=== PATIENT | male | born 1960 | race American Indian/Alaskan Native ===

== ENCOUNTER 2017-02-13 17:26 | Inpatient (IN) | payer OTHER ==
--- NOTE | 2017-02-13 18:00 | Emergency Department Report ---
Entered by CAS WILLIAMSON, acting as scribe for ZULMA SHAVER NP. Chief Complaint: Abdominal Pain Stated Complaint: ABD PAIN Time Seen by Provider: 02/13/17 17:55 - HPI History of Present Illness: 56 y/o non-toxic, non ill-appearing male in no acute distress presents to ED c/ o cramping abdominal pain since 1 week ago with associated loss of appetite. Also reports flu-like symptoms and general weakness at same onset. Reports chills. Denies N/V, chest pain, SOB. - ROS Review of Systems: + diffuse abdominal pain, chills - N/V, chest pain, SOB - Exam Vital Signs: Vital Signs 02/13/17 17:50 Temperature 98.3 F Pulse Rate 124 H Respiratory 20 Rate Blood Pressure 90/64 O2 Sat by Pulse 96 Oximetry Physical Exam: Abdomen: Diffuse abdominal pain. Non-distended. Non-tender. No point tenderness. Bowel sounds normal x 4. MSE screening note: Focused history and physical exam performed. Due to findings the following was ordered: CBC, CMP, amylase, lipase, UA ED Disposition for MSE Condition: Stable This documentation as recorded by the scribe,CAS WILLIAMSON,accurately reflects the service I personally performed and the decisions made by ,ZULMA SHAVER, BETH.
[2017-02-13 18:14] LABS: Basophils % (Auto) 0.8 % (0.0-1.8); Hematocrit 42.2 % (35.5-45.6); Hemoglobin 13.7 gm/dl (11.8-15.2); Mean Corpuscular HGB Conc 32 % (32-34); Mean Corpuscular Hemoglobin 28 pg (28-32); Mean Corpuscular Volume 86 fl (84-94); Platelet Count 439 K/mm3 (140-440); Red Blood Count 4.94 M/mm3 (3.65-5.03); Red Cell Distribution Width 14.7 % (13.2-15.2); White Blood Count 9.5 K/mm3 (4.5-11.0)
[2017-02-13 18:38] LABS: Alanine Aminotransferase 16 units/L (7-56); Albumin/Globulin Ratio 1.4 %; Alkaline Phosphatase 65 units/L (35-129); Amylase 134 units/L (27-131); Anion Gap 20 mmol/L; BUN/Creatinine Ratio 14.16; Blood Urea Nitrogen 17 mg/dL (9-20); Calcium 9.3 mg/dL (8.4-10.2); Carbon Dioxide 25 mmol/L (22-30); Chloride 90.6 mmol/L (98-107); Glucose 113 mg/dL (75-100); Lipase 124 units/L (13-60); Potassium 5.3 mmol/L (3.6-5.0); Sodium 130 mmol/L (137-145); Total Protein 6.9 g/dL (6.3-8.2)
[2017-02-13] MEDS ORDERED: TYLENOL PO ONE (23:51)
[2017-02-13] MEDS ORDERED: NACL 0.9% 1000 ML 2,000 ML IV ONE (23:51)
[2017-02-13] MEDS ORDERED: ZOFRAN IV ONE (23:51)
[2017-02-13] MEDS ORDERED: DECADRON IV ONE (23:54)
--- NOTE | 2017-02-14 00:06 | Emergency Department Report ---
ED Abdominal Pain HPI - General Chief Complaint: Abdominal Pain Stated Complaint: ABD PAIN Time Seen by Provider: 02/13/17 23:41 Source: patient Mode of arrival: Ambulatory Limitations: No Limitations - History of Present Illness Initial Comments: This is a pleasant 56-year-old gentleman who presents to the ED complaining of profound weakness. He describes headache as well as some body aches and some abdominal pains as well. He indicates approximately a week ago he had some nausea vomiting diarrhea. He states this is now resolved. He has anorexia now. He reports his abdominal pain is minimal. He describes the worst part being his profound weakness. He does endorse alcohol fairly regularly. States he hasn't drunk in about one week ago denies being on any current medications. Mild denies any hematochezia or hematemesis. Denies any difficulties with urination. Feels somewhat dehydrated as well. Severity scale (0 -10): 7 Improves With: rest Worsens With: movement - Related Data Home Medications Medication Instructions Recorded Confirmed Last Taken No Known Home Medications [No 02/13/17 02/13/17 Unknown Reported Home Medications] Allergies Allergy/AdvReac Type Severity Reaction Status Date / Time No Known Allergies Allergy Verified 02/14/17 02:25 ED Review of Systems ROS: Stated complaint: ABD PAIN Other details as noted in HPI Comment: All other systems reviewed and negative Constitutional: weakness. denies: chills, fever Eyes: denies: eye pain, eye discharge, vision change ENT: denies: ear pain, throat pain Respiratory: denies: cough, shortness of breath, wheezing Cardiovascular: denies: chest pain, palpitations Endocrine: no symptoms reported Gastrointestinal: abdominal pain. denies: nausea, diarrhea Genitourinary: denies: urgency, dysuria Musculoskeletal: denies: back pain, joint swelling, arthralgia Skin: denies: rash, lesions Neurological: headache. denies: weakness, paresthesias Psychiatric: denies: anxiety, depression Hematological/Lymphatic: denies: easy bleeding, easy bruising ED Past Medical Hx - Past Medical History Previous Medical History?: Yes - Surgical History Past Surgical History?: No - Social History Smoking Status: Current Every Day Smoker Substance Use Type: Alcohol - Medications Home Medications: Home Medications Medication Instructions Recorded Confirmed Last Taken Type No Known Home Medications [No 02/13/17 02/13/17 Unknown History Reported Home Medications] ED Physical Exam - General Limitations: No Limitations General appearance: alert, in distress (mild discomfort. Stigmata of a street person) - Head Head exam: Present: atraumatic, normocephalic - Eye Eye exam: Present: normal appearance, EOMI. Absent: scleral icterus - ENT ENT exam: Present: normal exam, normal orophraynx, mucous membranes moist, other (no TMJ tenderness no temporal artery tenderness) - Neck Neck exam: Present: normal inspection, full ROM. Absent: tenderness, meningismus, lymphadenopathy - Respiratory Respiratory exam: Present: normal lung sounds bilaterally. Absent: respiratory distress, wheezes, rales - Cardiovascular Cardiovascular Exam: Present: regular rate, normal rhythm. Absent: systolic murmur, diastolic murmur, rubs, gallop - GI/Abdominal GI/Abdominal exam: Present: soft, normal bowel sounds. Absent: tenderness, guarding - Rectal Rectal exam: Present: deferred - Extremities Exam Extremities exam: Present: normal inspection. Absent: tenderness, pedal edema, calf tenderness - Back Exam Back exam: Present: normal inspection. Absent: tenderness, CVA tenderness (R), CVA tenderness (L) - Neurological Exam Neurological exam: Present: alert, oriented X3, other (moving all extremities appropriately. In general demonstrates global mild weakness.) - Psychiatric Psychiatric exam: Present: normal affect, normal mood - Skin Skin exam: Present: warm, dry, intact, normal color. Absent: rash ED Course Vital Signs 02/13/17 02/13/17 02/13/17 17:50 21:17 23:30 Temperature 98.3 F 98.1 F 97.9 F Pulse Rate 124 H 96 H 78 Respiratory 20 18 20 Rate Blood Pressure 90/64 98/72 Blood Pressure 98/73 [Left] O2 Sat by Pulse 96 97 100 Oximetry 02/13/17 02/14/17 02/14/17 23:31 00:18 01:18 Temperature Pulse Rate Respiratory 20 20 20 Rate Blood Pressure Blood Pressure [Left] O2 Sat by Pulse 99 Oximetry 02/14/17 02:00 Temperature Pulse Rate 80 Respiratory 20 Rate Blood Pressure Blood Pressure 100/73 [Left] O2 Sat by Pulse 99 Oximetry - Reevaluation(s) Reevaluation #1: 02/14/17 00:09 Labs are noted here demonstrating hyponatremia as well as mild hyperkalemia. Patient does have elevation as well of his amylase and lipase. I suspect this correlates with his alcoholism. He denies any epigastric pain is as the source of his pain right now. His abdominal examination in general is fairly benign. I do not appreciate any epigastric discomfort at this time. His symptomatology of weakness with associated labs and causes me to suspect strongly adrenal insufficiency. He is also noted to be mildly hypotensive here as well as tachycardic. Patient was given dexamethasone for steroids stress dose. Given IV fluids as well. I'm inclined to keep him in the hospital for continued evaluation as I do indeed I suspect he has adrenal insufficiency. Afebrile here. I do not suspect an infectious component at this time. Reevaluation #2: 02/14/17 00:50 Chest x-ray is noted. It is unremarkable. Patient remained stable here. He does continue to appear somewhat weak and fatigued. I did speak with hospitalist regarding admission for this patient. ED Medical Decision Making - Lab Data Result diagrams: 02/13/17 18:02 02/13/17 18:02 - Radiology Data interpreted by me: No infiltrate. Normal cardiac silhouette. Critical care attestation.: If time is entered above; I have spent that time in minutes in the direct care of this critically ill patient, excluding procedure time. ED Disposition Clinical Impression: Adrenal insufficiency, Hyponatremia, Weakness Disposition: OP ADMITTED IP TO THIS HOSP Is pt being admited?: Yes Does the pt Need Aspirin: No Condition: Stable Time of Disposition: 00:51
[2017-02-14] MEDS ORDERED: ZOFRAN IV PRN (02:16)
[2017-02-14] MEDS ORDERED: MILK OF MAGNESIA PO PRN (02:16)
[2017-02-14] MEDS ORDERED: DULCOLAX PR PRN (02:16)
[2017-02-14] MEDS ORDERED: TYLENOL PO PRN (02:16)
--- NOTE | 2017-02-14 02:30 | History and Physical Report ---
History of Present Illness Date of examination: 02/14/17 History of present illness: 56-year-old man with history of alcohol abuse comes emergency room with complaints of generalized weakness, headache and diffuse body pain and diffuse body pain for one week. Patient denies chest pain, palpitation, shortness of breath, cough, abdominal pain, hematochezia, dysuria, frequency, focal weakness, dysarthria, fever chills , polydipsia polyuria, hot or cold intolerance, easy bruisability, or rash or bleeding from mucosal membrane, rhinorrhea, epistaxis, earache, tinnitus, blurry vision, eye discharge, anxiety, depression. Other review of systems negative PAST SURGICAL HISTORY: None SOCIAL HISTORY: Smoke a pack a day, drink 6 pack every 2 days, no drugs FAMILY HISTORY: Hypertension Medications and Allergies Allergies Allergy/AdvReac Type Severity Reaction Status Date / Time No Known Allergies Allergy Verified 02/14/17 02:25 Home Medications Medication Instructions Recorded Confirmed Last Taken Type No Known Home Medications [No 02/13/17 02/13/17 Unknown History Reported Home Medications] Active Meds: Active Medications Acetaminophen (Tylenol) 650 mg PO Q4H PRN PRN Reason: Pain MILD(1-3)/Fever >100.5/PAULA Bisacodyl (Dulcolax) 10 mg [place] QDAY PRN PRN Reason: Constipation unrelieved by MOM Enoxaparin Sodium (Lovenox) 40 mg SUB-Q QDAY NICOLE Sodium Chloride (Nacl 0.9% 1000 Ml) 1,000 mls @ 125 mls/hr IV DIRECT NICOLE Magnesium Hydroxide (Milk Of Magnesia) 30 ml PO Q4H PRN PRN Reason: Constipation Ondansetron HCl (Zofran) 4 mg IV Q8H PRN PRN Reason: N/V unrelieved by Reglan Exam - Physical Exam Narrative exam: Gen. appearance: Patient lying in bed, no apparent distress HEENT: Normocephalic, atraumatic, pupils equally round and reactive to light, extraocular movement intact, and no sclericterus,. No JVD or thyromegaly or nodule,neck supple, no carotid bruit ,mucous membranes moist, no exudate or erythema Heart: S1, S2, regular rate and rhythm Lungs: Clear to auscultation bilaterally, breathing comfortable Abdomen: Positive bowel sounds, nontender, nondistended, no organomegaly Extremity: No edema, cyanosis, clubbing Skin: No rash, nodules, warm, dry Neuro: Oriented 3, cranial nerves II-12 intact, speech is fluent, motor and sensory intact - Constitutional Vitals: Temp Pulse Resp BP Pulse Ox 97.9 F 78 20 98/73 99 02/13/17 23:30 02/13/17 23:30 02/14/17 00:18 02/13/17 23:30 02/13/17 23:31 Results - Labs CBC & Chem 7: 02/13/17 18:02 02/13/17 18:02 Labs: Abnormal lab results 02/13/17 02/13/17 Range/Units 18:02 18:02 [place] % (Auto) 8.8 H (0.0-7.3) % Seg Neutrophils % 70.6 H (40.0-70.0) % Sodium 130 L (137-145) mmol/L Potassium 5.3 H (3.6-5.0) mmol/L Chloride 90.6 L (98-107) mmol/L Glucose 113 H (75-100) mg/dL Amylase 134 H (27-131) units/L Lipase 124 H (13-60) units/L Assessment and Plan Hyponatremia Headache Alcohol abuse Admit to medicine Start IV fluids, check urine sodium, creatinine and osmolarity Consult renal, check CT head Follow cortisol , TSH levels Start CIWA protocol with IV ativan Start DVT prophylaxis
[2017-02-14] MEDS ORDERED: NACL 0.9% 1000 ML 1,000 ML IV SCH ×2 (03:00→10:00)
--- NOTE | 2017-02-14 06:20 | Cat Scan Report ---
FINAL REPORT PROCEDURE: CT HEAD/BRAIN WO CON TECHNIQUE: Computerized tomography of the head was performed without contrast material. HISTORY: thompson COMPARISON: No prior studies are available for comparison. FINDINGS: Skull and scalp: Normal. Paranasal sinuses: Normal. Ventricles and subarachnoid spaces: Normal. Cerebrum: No evidence of hemorrhage, acute infarction or mass . Cerebellum and brainstem: No evidence of hemorrhage, acute infarction or mass. Vasculature: Normal. Comments: None. IMPRESSION: Normal Examination
[2017-02-14] MEDS ORDERED: ATIVAN IV PRN ×3 (06:49)
--- NOTE | 2017-02-14 07:20 | XRay Report ---
AP CHEST: HISTORY: Fatigue, weakness, hypotension The lungs are hyperinflated but clear. No pleural effusion or pneumothorax. Normal heart and mediastinal structures. Normal bony thorax. IMPRESSION: Hyperinflation. No acute process noted.
[2017-02-14 08:33] LABS: Anion Gap 19 mmol/L; BUN/Creatinine Ratio 31.66; Blood Urea Nitrogen 19 mg/dL (9-20); Calcium 8.7 mg/dL (8.4-10.2); Carbon Dioxide 21 mmol/L (22-30); Chloride 96.2 mmol/L (98-107); Glucose 150 mg/dL (75-100); Potassium 5.2 mmol/L (3.6-5.0); Sodium 131 mmol/L (137-145)
--- NOTE | 2017-02-14 09:33 | Consultation ---
History of Present Illness - Reason for Consult Consult date: 02/14/17 hyponatremia - History of Present Illness patient with h/o alcohol abuse came to the ED for worsening weakness, body aches , abdominal pain and nausea. patient is poor historian, history obtained from chart. labs showed hyponatremia and renal consulted for management. Past History Past Medical History: other (alcohol abuse) Medications and Allergies Allergies Allergy/AdvReac Type Severity Reaction Status Date / Time No Known Allergies Allergy Verified 02/14/17 02:25 Home Medications Medication Instructions Recorded Confirmed Last Taken Type No Known Home Medications [No 02/13/17 02/13/17 Unknown History Reported Home Medications] Active Meds: Active Medications Acetaminophen (Tylenol) 650 mg PO Q4H PRN PRN Reason: Pain MILD(1-3)/Fever >100.5/PAULA Bisacodyl (Dulcolax) 10 mg [place] QDAY PRN PRN Reason: Constipation unrelieved by MOM Enoxaparin Sodium (Lovenox) 40 mg SUB-Q QDAY NICOLE Sodium Chloride (Nacl 0.9% 1000 Ml) 1,000 mls @ 125 mls/hr IV DIRECT NICOLE Sodium Chloride (Nacl 0.9% 1000 Ml) 1,000 mls @ 125 mls/hr IV DIRECT NICOLE Lorazepam (Ativan) 4 mg IV Q1HR PRN PRN Reason: CIWA-Ar 16-25 Lorazepam (Ativan) 4 mg IV Q15MIN PRN PRN Reason: CIWA-Ar >25 Lorazepam (Ativan) 2 mg IV Q1HR PRN PRN Reason: CIWA-Ar 8-15 Last Admin: 02/14/17 07:12 Dose: 2 mg Magnesium Hydroxide (Milk Of Magnesia) 30 ml PO Q4H PRN PRN Reason: Constipation Ondansetron HCl (Zofran) 4 mg IV Q8H PRN PRN Reason: N/V unrelieved by Reglan Review of Systems All systems: negative (weakness, abd pain, nausea) Exam - Vital Signs Vital signs: Vital Signs Temp Pulse Resp BP Pulse Ox 98.3 F 124 H 20 90/64 96 02/13/17 17:50 02/13/17 17:50 02/13/17 17:50 02/13/17 17:50 02/13/17 17:50 - General Appearance General appearance: cachectic EENT: ATNC, PERRL, mucous membranes dry Neck: Present: neck supple Respiratory: Clear to Ascultation Heart: regular, S1S2 Gastrointestinal: Present: normoactive bowel sounds. Absent: tenderness, distended, masses Integumentary: no rash, warm and dry Neurologic: no focal deficit, no asterixis, alert and oriented x3 Musculoskeletal: Present: other (no edema in BLE) Psychiatric: mood/affect appropriate, cooperative Results - Lab Results 02/13/17 18:02 02/14/17 07:33 Most recent lab results Calcium 8.7 mg/dL (8.4-10.2) 02/14/17 07:33 Assessment and Plan - Patient Problems (1) Hyponatremia Current Visit: Yes Status: Acute Plan to address problem: appears to be secondary to alcohol abuse and poor PO intake cont IVF NS 125 cc/h, serum osm and urine Na is pending fluid restriction TSH and random cortisol are pending CXR and CT head negative for lesions will check CK for mild elevation in K (2) Pancreatitis, acute Current Visit: Yes Status: Acute Qualifiers: Pancreatitis type: P Acute pancreatitis complication: A Plan to address problem: secondary to alcohol abuse currently NPO IVF as above (3) Alcohol abuse Current Visit: Yes Status: Acute Plan to address problem: on alcohol withdrawal protocol
[2017-02-14] MEDS ORDERED: LOVENOX SUB-Q SCH (10:00)
--- NOTE | 2017-02-14 11:48 | Admit Criteria Form ---
Admission Criteria Documentation: HYPONATREMIA; HYPERNATREMIA; HYPOKALEMIA; HYPERKALEMIA; HYPOCALCEMIA; HYPERCALCEMIA Clinical Indications for Inpatient Care (Place 'X' for any and all applicable criteria): Ongoing inpatient care may be indicated for ANY ONE of the following [G](1)(2)(3 )(5): [X]I. Hyponatremia with ANY ONE of the following: [ ]a) Sodium less than 130 mEq/L (mmol/L) (new) (6)(22) [X]b) Sodium less than 135 mEq/L (mmol/L) with ANY ONE of the following: [X]i) Severe medical etiology requiring inpatient management (eg, heart failure, hypovolemia) [ ]ii) Altered mental status [ ]iii) Seizures [ ]II. Hypernatremia with ANY ONE of the following: [ ]a) Sodium greater than 155 mEq/L (mmol/L) [ ]b) Sodium greater than 150 mEq/L (mmol/L) with ANY ONE of the following: [ ] i) Altered mental status [ ]ii) Seizures [ ]iii) Severe medical etiology (eg, hypovolemia, diabetes insipidus) [ ]iv) Severe weakness [ ]v) Severe medical etiology (eg, hemolysis, infection, drug overdose) [ ]III. Hypokalemia with ANY ONE of the following: [ ]a) Potassium less than 2.5 mEq/L (mmol/L) despite outpatient and emergency treatment [ ]b) Potassium less than 3.0 mEq/L (mmol/L) with ANY ONE of the following: [ ]i) Weakness [ ]ii) Cardiac abnormality (eg, arrhythmia, conduction disturbance) [ ]iii) Cardiac ischemia [ ]iv) Ileus [ ]v) Ongoing medical cause requiring inpatient management. ( e.g., acute renal wasting, SIADH) [ ]vi) Other severe symptoms [ ] IV. Hyperkalemia with ANY ONE of the following: [ ]a) Potassium greater than 6.5 mEq/L (mmol/L) [ ]b) Potassium greater than 5 mEq/L (mmol/L) with ANY ONE of the following: [ ]i) Severe ECG findings [H] [ ]ii) Acute worsening of renal failure (creatinine greater than 2.5 mg/dL (221 micromoles/L) or significant elevation for age and size) [ ] V. Hypocalcemia with ANY ONE of the following: [ ]a) Calcium less than 7 mg/dL (1.75 mmol/L) despite outpatient and emergency treatment(19) [ ]b) Calcium less than 8 mg/dL (2 mmol/L) with significant symptoms or findings; examples include: [ ]i) Cardiac abnormality (eg, arrhythmia or conduction disturbance) [ ]ii) Altered mental status [ ]iii) Seizures [ ]iv) Breathing difficulty [ ]v) Muscle spasms [ ]. Hypercalcemia with ANY ONE of the following: [ ]a) Calcium greater than 14 mg/dL (3.5 mmol/L) [ ]b) Calcium greater than 12 mg/dL (3 mmol/L) with ANY ONE of the following: [ ]i) Significant dehydration or hypovolemia as indicated by ANY ONE of the following(2): [ ]1. Clinically significant dehydration as indicated by ANY ONE of the following: [ ]A. Acute loss of weight from baseline (5% of body weight in adults, 9% in pediatric patients) [ ]B. Hemodynamic instability [ ]C. Acute renal failure [ ]D. Serum sodium greater than 150 mEq/L (mmol/L) [ ]2) Dehydration that is persistent indicated by ALL of the following: [ ]A. Oral rehydration therapy not tolerated or insufficient to adequately correct dehydration [ ]B. Appropriate intravenous treatment (eg, fluids ) does not readily correct dehydration ie, after 12 to 24 hours of treatment) [ ]ii) Significant symptoms or findings; examples include: [ ]1) Altered mental status [ ]2) Cardiac abnormality (eg, arrhythmia, conduction disturbance) [ ]3) Cardiac abnormality (eg, arrhythmia, conduction disturbance) The original [facility] content created by [employer] has been revised. The portions of the content which have been revised are identified through the use of italic text or in bold, and [facility] has neither reviewed nor approved the modified material. All other unmodified content is copyright [facility] [employer] Please see references footnoted in the original [facility] [employer] edition 2016 Admission Criteria Met: Yes
[2017-02-15 05:53] LABS: Basophils % (Auto) 0.3 % (0.0-1.8); Hematocrit 35.8 % (35.5-45.6); Hemoglobin 11.8 gm/dl (11.8-15.2); Mean Corpuscular HGB Conc 33 % (32-34); Mean Corpuscular Hemoglobin 28 pg (28-32); Mean Corpuscular Volume 85 fl (84-94); Platelet Count 417 K/mm3 (140-440); Red Blood Count 4.22 M/mm3 (3.65-5.03); Red Cell Distribution Width 14.4 % (13.2-15.2); White Blood Count 10.2 K/mm3 (4.5-11.0)
[2017-02-15 05:59] LABS: Anion Gap 16 mmol/L; BUN/Creatinine Ratio 24.28; Blood Urea Nitrogen 17 mg/dL (9-20); Calcium 8.6 mg/dL (8.4-10.2); Carbon Dioxide 23 mmol/L (22-30); Chloride 99.8 mmol/L (98-107); Glucose 103 mg/dL (75-100); Potassium 4.8 mmol/L (3.6-5.0); Sodium 134 mmol/L (137-145)
[2017-02-15 08:13] VITALS: BP 83/58
[2017-02-15 08:22] LABS: Basophils % (Auto) 0.1 % (0.0-1.8); Eosinophils % (Auto) 0.1 % (0.0-4.3); Hematocrit 35.7 % (35.5-45.6); Hemoglobin 11.5 gm/dl (11.8-15.2); Mean Corpuscular HGB Conc 32 % (32-34); Mean Corpuscular Hemoglobin 27 pg (28-32); Mean Corpuscular Volume 85 fl (84-94); Platelet Count 400 K/mm3 (140-440); Red Blood Count 4.19 M/mm3 (3.65-5.03); Red Cell Distribution Width 14.5 % (13.2-15.2); White Blood Count 10.1 K/mm3 (4.5-11.0)
--- NOTE | 2017-02-15 09:42 | Discharge Summary ---
Providers - Providers Date of Admission: 02/14/17 02:16 Attending physician: STEVEN ORNELAS MD Primary care physician: GURU RICHTER MD Hospitalization Condition: Stable Hospital course: 56-year-old male with a past medical history of alcohol abuse and nicotine abuse who presented 8 days after having stopped drink alcohol. He noted that initially when he stopped drinking he was having abdominal pain nausea vomiting , which had sees about 5 days prior to presentation. However on presentation he was complaining of weakness generalized body aches, poor appetite, complaining of 10-15 pound weight loss. Of note he was found to be dehydrated, hyponatremic, he was treated with IV fluids after which his serum sodium improves, he was also found to have hyperkalemia which improved with hydration, 4 and nicotine abuse he was counseled and offered nicotine patches. He was also given outpatient resources to help him with his substance dependence. Discharge diagnoses Hyponatremia due to beer potomania Mild to moderate malnutrition Dehydration Alcohol abuse/dependence Nicotine dependence Disposition: DISCHARGED TO HOME OR SELFCARE Time spent for discharge: 35 minutes Core Measure Documentation - Palliative Care Palliative Care/ Comfort Measures: Not Applicable - Core Measures Any of the following diagnoses?: none Exam - Constitutional Vitals: Temp Pulse Resp BP Pulse Ox 97.3 F L 79 18 83/58 100 02/15/17 08:00 02/15/17 08:00 02/15/17 08:00 02/15/17 08:00 02/15/17 08:00 General appearance: Present: no acute distress, cachectic - EENT Eyes: Present: PERRL ENT: hearing intact, clear oral mucosa - Neck Neck: Present: supple, normal ROM - Respiratory Respiratory effort: normal Respiratory: bilateral: CTA - Cardiovascular Heart Sounds: Present: S1 & S2. Absent: rub, click - Extremities Extremities: pulses symmetrical, No edema Peripheral Pulses: within normal limits - Abdominal General gastrointestinal: Present: soft, non-tender, non-distended, normal bowel sounds Male genitourinary: Present: normal - Integumentary Integumentary: Present: clear, warm, dry - Musculoskeletal Musculoskeletal: gait normal, strength equal bilaterally - Psychiatric Psychiatric: appropriate mood/affect, intact judgment & insight - Neurologic Neurologic: CNII-XII intact, moves all extremities Plan Activity: no restrictions Follow up with: PRIMARY CARE, [Primary Care Provider] - 3-5 Days Prescriptions: Folic Acid 1 tab PO QDAY #30 tab Nicotine [Habitrol] 14 mg TD DAILY #30 patch Thiamine [Vitamin B-1] 100 mg PO QDAY #30 tablet
[2017-02-15 10:25] LABS: Anion Gap 16 mmol/L; BUN/Creatinine Ratio 21.42; Blood Urea Nitrogen 15 mg/dL (9-20); Calcium 8.3 mg/dL (8.4-10.2); Carbon Dioxide 21 mmol/L (22-30); Chloride 104.3 mmol/L (98-107); Glucose 101 mg/dL (75-100); Potassium 4.6 mmol/L (3.6-5.0); Sodium 137 mmol/L (137-145)
== END 2017-02-15 13:55 | disposition home or self-care (01) | DRG 640 ==
LOC: ED 17:26 → 3A 02-14 02:16
PROVIDERS: ADMIT Internal Medicine; ATTEND Internal Medicine
DX: E87.1 Hypo-osmolality and hyponatremia (principal); K85.20 Alcohol induced acute pancreatitis without necrosis or infection; E44.0 Moderate protein-calorie malnutrition; Z68.1 Body mass index [BMI] 19.9 or less, adult; E87.5 Hyperkalemia; F17.210 Nicotine dependence, cigarettes, uncomplicated; F10.20 Alcohol dependence, uncomplicated; E86.0 Dehydration; Z82.49 Family history of ischemic heart disease and other diseases of the circulatory system
CPT/HCPCS: 36415; 70450; 71010; 80048; 80053; 82150; 82533; 82550; 82570; 83690; 83735; 83930; 83935; 84300; 84443; 85025; 96361; 96374; 96375; 99406; J1100; J1650; J2060; J2405; J7030